=== PATIENT | female | born 1945 | race Caucasian/White ===

== ENCOUNTER → 2025-07-14 | Outpatient (CLI) | payer MEDICARE ==
--- NOTE | 2025-07-14 12:49 | HMCIMG ---
EXAM: MAGNETIC RESONANCE ANGIOGRAPHY OF THE HEAD WITHOUT INTRAVENOUS CONTRAST Technique: Three-dimensional cuba-rp-ywfopr magnetic resonance angiography of the [place] with multiplanar tjnhrjx-tifigywno-vjayskomyw reformations. Contrast: No intravenous contrast was administered. Clinical Information: Transient cerebral ischemic attack, unspecified. Findings: Intracranial arteries: Intracranial internal carotid, middle cerebral, and anterior cerebral arteries are patent without hemodynamically significant stenosis or aneurysm. 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 Intracranial arteries: Vertebral, basilar, and posterior cerebral arteries are patent without hemodynamically significant stenosis or aneurysm. IMPRESSION: 1. No hemodynamically significant stenosis or aneurysm identified in the major intracranial arteries, including internal carotid, middle cerebral, anterior cerebral, vertebral, basilar, and posterior cerebral arteries. 2. Hypoplastic left A1 segment, representing an anatomic variant. /Bryant
== END | disposition home or self-care (01) ==
LOC: RAH 10:48
PROVIDERS: ATTEND Psychiatry & Neurology Neurology
DX: G45.9 Transient cerebral ischemic attack, unspecified (principal); R26.81 Unsteadiness on feet
CPT/HCPCS: 70544